=== PATIENT | male | born 1960 | race Caucasian/White ===

== ENCOUNTER 2023-12-13 08:51 | Emergency (ER) | payer OTHER, SELFPAY ==
[2023-12-13 08:55] VITALS: BP 189/108
--- NOTE | 2023-12-13 09:37 | ED.GENMED ---
History of Present Illness
General
Chief Complaint: Abdominal Pain
Source: patient
Exam Limitations: none
Time Seen by Provider: 12/13/23 09:29
History of Present Illness
History of Present Illness:
62-year-old male presents with intermittent lower abdominal pain for the past 3 days. Sharp in nature. No associated nausea or vomiting but does note loose stool starting this morning. He denies any blood in his stool. He has no past medical
history never been to a hospital before. Does not take any medications. He states has been urinating okay but more frequently. He denies chills or sweats. No flank pain. He has a known umbilical hernia.
Phy Exam
Physical Exam
Physical Exam:
General: Well-appearing male no acute respiratory distress
HEENT: Normocephalic atraumatic
Heart: Regular rate and rhythm no murmurs
Lungs: Clear no wheeze
Abdomen is soft slightly tender to the lower abdomen bilaterally no guarding or rebound no significant distention. Soft reducible umbilical hernia
Extremities: No cyanosis or edema
Skin no rash or lesion
Course
Orders/Labs/Results
Orders:
Orders
12/13/23 09:36
CT Abd/pelvis W Iv Cont Urgent
Comment:
Reason For Exam: lower abdominal pain
12/13/23 10:06
Complete Blood Count/With Diff Urgent
Comprehensive Metabolic Panel Urgent
Urinalysis Reflex To Culture Urgent
Date Specimen was Collected: 12/13/23
Time Specimen was Collected: 10:01
Urine Microscopic Reflex Cult Urgent
12/13/23 13:11
Amoxicillin 875 mg/Clav 125 mg [Augmentin 875 mg/125 mg] 1 tablet PO NOW STA
Abnormal Lab Results
12/13/23
10:06
WBC 13.5 H 10^3/uL
(4.8-10.8)
MPV 11.6 H fL
(7.4-10.4)
Absolute Neuts (auto) 10.1 H 10^3/uL
(1.4-6.5)
Absolute Monos (auto) 1.1 H 10^3/uL
(0.1-0.6)
Lymphocytes % 14.5 L %
(20.5-51.1)
Glucose 109 H mg/dl
(70-99)
Calcium 10.3 H mg/dl
(8.4-10.2)
Ur Occult Blood Reflex 1+ A
(Negative)
Urine RBC 3-6 A /HPF
(0-2)
12/13/23 10:06
12/13/23 10:06
Vital Signs
Initial and Last Documented VS:
Initial Vital Signs
Temp Pulse Resp BP Pulse Ox
97.8 F 82 18 189/108 97
12/13/23 08:55 12/13/23 08:55 12/13/23 08:55 12/13/23 08:55 12/13/23 08:55
Last Documented Vital Signs
Temp Pulse Resp BP Pulse Ox
97.8 F 82 18 189/108 97
12/13/23 08:55 12/13/23 08:55 12/13/23 08:55 12/13/23 08:55 12/13/23 08:55
MDM/Problems Addressed
Differential Diagnosis Includes:
Lower abdominal pain. This is acute. No prior medical history. Consider UTI versus constipation versus diverticulitis
Will check labs urinalysis and CT.
Chronic conditions affecting care:
n/a
Acute Exacerbation and/or Progression of Chronic Illness:
THis is an acute problem
*Critical Care Note
Total Time (30-74mins, 75-104mins- exclusive of procedures): Not Applicable
Update Note
Update Note:
CT shows acute diverticulitis without evidence of perforation or abscess. Patient has remained stable. White blood cell count slightly elevated. Patient has been healthy does not take any medications. He has not used any antibiotics recently.
Will do Augmentin twice a day for 10 days. Advised clear liquids. Return precautions were given
ED Attending Note
-
Portions of this chart may have been created with voice recognition software.� Occasional wrong word or��sound alike� substitutions may have occurred due to the inherent limitations of voice recognition software.
Discharge Plan
Departure
Patient Disposition: Home (Routine Discharge)
Date of Disposition: 12/13/23
Time of Disposition: 13:13
Patient with high blood pressure during this ER visit?: No
Discharge Problem:
Diverticulitis
Instructions: Diverticulitis (DC)
Prescriptions:
New
amoxicillin-pot clavulanate 875-125 mg tablet
1 tab PO BID Qty: 20 0RF
Referrals:
Cosme Stein, [Family Provider] -
Activity Restrictions/Additional Instructions:
Drink plenty clear liquids. Use antibiotics as directed. Return here for increasing pain fever vomiting or other concerning finding. Follow-up with family doctor otherwise. 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 This also needs
follow-up
Interventions
Interventions:
*Risk Screen - Suicide Last Done: 12/13/23 08:57
*General Assessment Last Done: 12/13/23 08:57
*Neglect/Abuse Screening Last Done: 12/13/23 08:57
*ED COVID-19 Vaccine History Last Done: 12/13/23 09:58
AX-Xkecpv-Fpkfqfdapv Assessment Last Done: 12/13/23 09:58
Discharge Date and Time
Print Language: [place]
[2023-12-13 09:57] VITALS: BMI 32.5
[2023-12-13 10:25] LABS: % Basophils 0.7 % (0-2); % Eosinophils 1.3 % (0-6); % Immature Granulocytes 0.3 % (0-0.5); % Lymphocytes 14.5 % (20.5-51.1); % Monocytes 8.4 % (1.7-9.3); % Neutrophils 74.8 % (42.2-75.2); Absolute Basophils 0.1 10^3/uL (0-0.2); Absolute Eosinophils 0.2 10^3/uL (0-0.7); Absolute Monocytes 1.1 10^3/uL (0.1-0.6); Absolute Neutrophils 10.1 10^3/uL (1.4-6.5); Hematocrit 45.7 % (39.0-52.0); Mean Corpuscular Hgb 29.3 pg (27.0-31.0); Mean Corpuscular Volume 83.5 fL (80.0-94.0); Mean Platelet Volume 11.6 fL (7.4-10.4); Nucleated Red Blood Cells % 0 % (-); Platelet Count 189 10^3/uL (130-400); Red Blood Cell Count 5.47 10^6/uL (4.70-6.10); Red Cell Dist. Width 13.8 % (11.5-14.5); White Blood Cell Count 13.5 10^3/uL (4.8-10.8)
[2023-12-13 10:28] LABS: Urine Albumin Negative (Neg - Trace); Urine Bilirubin Negative (Negative); Urine Character Clear (Clear); Urine Color Yellow; Urine Glucose Negative (Negative); Urine Ketone Negative (Negative); Urine Leukocyte Negative (Negative); Urine Nitrite Negative (Negative); Urine Occult Blood 1+ (Negative); Urine Urobilinogen Negative (Neg - 1+); Urine pH 6.5 (5.0-9.0)
[2023-12-13 10:38] LABS: ALT (SGPT) 27 U/L (0-50); AST (SGOT) 28 U/L (17-59); Albumin 4.9 g/dl (3.5-5.0); Alkaline Phosphatase 62 U/L (38-126); Blood Urea Nitrogen 15 mg/dl (9-20); Calcium 10.3 mg/dl (8.4-10.2); Carbon Dioxide 29 mmol/L (22-30); Chloride 101 mmol/L (98-107); Estimated Creatinine Clearance 77 ml/min; Glucose 109 mg/dl (70-99); Potassium 4.5 mmol/L (3.5-5.1); Sodium 141 mmol/L (135-145); Total Bilirubin 1.3 mg/dl (0.2-1.3); Total Protein 7.5 g/dl (6.3-8.2); eGFR > 60.00
[2023-12-13 10:53] LABS: Urine Mucus Many
[2023-12-13 10:55] LABS: Urine Amorphous Seen; Urine Urothelial Cell 0-2 /LPF (FEW); Urine White Cell 0-2 /HPF (0-5)
[2023-12-13] MEDS: AUGMENTIN 875 MG/125 MG 1 TABLET PO (13:22)
[2023-12-13 13:31] VITALS: BP 147/88
== END 2023-12-13 13:34 | disposition home or self-care (01) ==
LOC: EMR 08:51
PROVIDERS: Physician Assistant; EMERGENCY PHYSICIAN Emergency Medicine; FAMILY PHYSICIAN Family Medicine
DX: K57.32 Diverticulitis of large intestine without perforation or abscess without bleeding (principal)
CPT/HCPCS: 99284; 74177; 80053; 81003; 81015; 85025; Q9967